=== PATIENT | male | born 1955 | race Caucasian/White ===

== ENCOUNTER 2016-06-26 14:31 | Emergency (ER) | payer OTHER ==
[~2016-06-26] VITALS: Wt 72.0 kg
--- NOTE | 2016-06-26 16:34 | RADRPT ---
PROCEDURE: Nonvascular ultrasound CLINICAL INDICATION: L NECK MASS TECHNIQUE: Real time raman scale ultrasound imaging with Doppler evaluation of left neck mass. COMPARISON: None. FINDINGS: Heterogeneous subcutaneous mass underline the region of palpable abnormality in the left neck measur ing 3.9 x 2.8 x 2.6 are in size. No internal vascularity. This may represent hematoma, primary mal ignancy, or lymphadenopathy. CT correlation with contrast is recommended IMPRESSION: Heterogeneous 3.9 cm subcutaneous mass in the left neck. Hematoma, primary malignancy, or lymphaden opathy are differential diagnostic considerations. Contrast enhanced CT neck is recommended. RPTAT:AAJJ Kassy Rai Physician Date Time Electronically viewed and signed by Physician Curtis on 06/26/2016 16:33 FRANCISCO J/
[2016-06-26 17:37] LABS: BASOPHILS % 0.6 % (0.0-2.0); EOSINOPHILS # 0.1 10^3/ul (0.0-0.5); EOSINOPHILS % 2.2 % (0.0-7.0); HEMATOCRIT 42.9 % (42.0-52.0); HEMOGLOBIN 14.8 g/dl (14.0-18.0); LYMPHOCYTES % 32.9 % (15.0-51.0); MEAN CORPUSCULAR HEMOGLOBIN 31.4 pg (29.0-33.0); MEAN CORPUSCULAR HGB CONC 34.4 g/dl (32.0-37.0); MEAN CORPUSCULAR VOLUME 91.4 fl (82.0-101.0); MEAN PLATELET VOLUME 9.5 fl (7.4-10.4); MONOCYTE # 0.6 10^3/ul (0.3-0.9); MONOCYTES % 9.5 % (0.0-11.0); NEUTROPHIL # 3.3 10^3/ul (1.6-7.5); NEUTROPHILS % 54.8 % (39.0-77.0); PLATELET COUNT 233 10^3/UL (140-440); RED BLOOD COUNT 4.69 10^6/ul (4.70-6.10); RED CELL DISTRIBUTION WIDTH 13.9 % (11.5-14.5)
[2016-06-26 17:39] LABS: CONDITION 1
[2016-06-26 17:50] LABS: ALBUMIN 4.6 g/dl (3.3-4.9)
[2016-06-26 17:51] LABS: POTASSIUM 4.5 mmol/L (3.5-5.1)
[2016-06-26 17:53] LABS: ALBUMIN/GLOBULIN RATIO 1.24; BILIRUBIN,INDIRECT 0.2 mg/dl (0-1.1); BILIRUBIN,TOTAL 0.2 mg/dl (0.2-1.3); CREATININE 0.76 mg/dl (0.61-1.24); TOTAL PROTEIN 8.3 g/dl (6.1-8.1)
[2016-06-26 17:54] LABS: CALCIUM 9.6 mg/dl (8.4-10.2)
[2016-06-26] MEDS ORDERED: IODIXANOL LOCM 100 ML BTL ONE (18:16)
[2016-06-26] MEDS ORDERED: SOD CHLORIDE 0.9% 100 ML ONE (18:16)
--- NOTE | 2016-06-26 18:51 | RADRPT ---
PROCEDURE: CT scan of the neck with contrast. CLINICAL INDICATION: Neck mass TECHNIQUE: CT scan of the neck was performed on the [employer] volumetric 64-slice scanner . Contiguous ax ial images were obtained throughout the neck with coronal and sagittal reformatted images. 100 cc o f Omnipaque 300 was administered. The exam CTDI = 10.12 and the DLP equals 295.44 mGy-cm. One or more of the following dose reduction techniques were used: Automated exposure control. Adjustment of the mA and/or kV according to patient size. Use of iterative reconstruction technique. COMPARISON: None available FINDINGS: There is approximately 3.2 x 3.5 x 4.1 cm (transverse x AP x craniocaudal) heterogeneous mass in the superficial lobe of the left parotid gland infiltrating into the adjacent sternocleidomastoid muscl e posteriorly. The oropharynx, hypopharynx, larynx, and trachea are unremarkable. No airway comprom ise is seen. The mucosal space of the airway is clear. The tonsillar pillars are normal. The deep spaces of the suprahyoid neck are symmetric and normal. No mass is identified. The right parotid submandibular glands, and thyroid gland are all normal. Imaging obtained through the lung apices re vealed no acute abnormality. Normal size lymph nodes are seen within the typical gwendolyn bearing stat ions of the neck bilaterally. No adenopathy is detected. The patient is status post ACDF at C5-C7 . The surrounding soft tissues and muscles are unremarkable as well. IMPRESSION: 1. 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 No CT evidence of perineural spread. Recommend ENT consult. 2. No lymphadenopathy in the neck by size criteria. RPTAT: HHO .Maegan Ha MD, MD Date Time Electronically viewed and signed by .Maegan Ha MD, on 06/26/2016 18:50 .O/
--- NOTE | 2016-06-26 19:44 | ERD ---
ER Documentation Chief Complaint Date/Time DATE: 06/26/16 TIME: 19:42 Chief Complaint left side facial swelling for 15 days, HPI This 60-year-old male complains of swelling on the left neck area over the last 2 weeks. He denies a bump evaluation. He has no fevers, vomiting, shortness of breath or chest pain. He has no difficulty swelling. ROS All systems reviewed and are negative except as per history of present illness. Allergies Allergies: Coded Allergies: No Known Allergy (Unverified , 06/26/16) PMhx/Soc History of Surgery: Yes (RIGHT HAND-WORKERS COMP) Anesthesia Reaction: No Hx Neurological Disorder: No Hx Respiratory Disorders: No Hx Cardiac Disorders: No Hx Psychiatric Problems: No Hx Miscellaneous Medical Probl: Yes (DM) Hx Alcohol Use: No Hx Substance Use: No Hx Tobacco Use: No Smoking Status: Never smoker Physical Exam Vitals Vital Signs Date Time Temp Pulse Resp B/P Pulse Ox O2 Delivery O2 Flow Rate FiO2 06/26/16 14:35 98.8 90 20 131/71 99 Physical Exam Const: [] Head: Atraumatic Eyes: Normal Conjunctiva ENT: Normal External Ears, Nose and Mouth. Neck: Full range of motion..~ No meningismus. Resp: Clear to auscultation bilaterally Cardio: Regular rate and rhythm, no murmurs Abd: Soft, non tender, non distended. Normal bowel sounds Skin: No petechiae or rashes Back: No midline or flank tenderness Ext: No cyanosis, or edema Neur: Awake and alert Psych: Normal Mood and Affect Result Diagram: 06/26/16 1700 06/26/16 1700 Results 24 hrs Laboratory Tests Test 06/26/16 17:00 Alanine Aminotransferase (ALT/SGPT) 28IU/L Albumin 4.6g/dl Albumin/Globulin Ratio 1.24 Alkaline Phosphatase 86IU/L Anion Gap 18 Aspartate Amino Transf (AST/SGOT) 19IU/L Basophils # 0.010^3/ul Basophils % 0.6% Blood Urea Nitrogen 14mg/dl Calcium Level 9.6mg/dl Carbon Dioxide Level 28mmol/L Chloride Level 102mmol/L Creatinine 0.76mg/dl Direct Bilirubin 0.00mg/dl Eosinophils # 0.110^3/ul Eosinophils % 2.2% Globulin 3.70g/dl Glucose Level 248mg/dl Hematocrit 42.9% Hemoglobin 14.8g/dl Indirect Bilirubin 0.2mg/dl Lymphocytes # 2.010^3/ul Lymphocytes % 32.9% Mean Corpuscular Hemoglobin 31.4pg Mean Corpuscular Hemoglobin Concent 34.4g/dl Mean Corpuscular Volume 91.4fl Mean Platelet Volume 9.5fl Monocytes # 0.610^3/ul Monocytes % 9.5% Neutrophils # 3.310^3/ul Neutrophils % 54.8% Nucleated Red Blood Cells # 0.010^3/ul Nucleated Red Blood Cells % 0.0/100WBC Platelet Count 18494^3/UL Potassium Level 4.5mmol/L Red Blood Count 4.6910^6/ul Red Cell Distribution Width 13.9% Sodium Level 143mmol/L Total Bilirubin 0.2mg/dl Total Protein 8.3g/dl White Blood Count 6.010^3/ul Current Medications Medications (Trade) Dose Ordered Sig/Osmel Route PRN Reason Start Time Stop Time Status Last Admin Dose Admin IV Flush 10 ml 10 ml STK-MED ONCE .ROUTE 06/26/16 18:16 06/26/16 18:17 DC 06/26/16 18:26 Sodium Chloride (NS) 100 ml @ ud STK-MED ONCE .ROUTE 06/26/16 18:16 06/26/16 18:17 DC 06/26/16 18:26 Iodixanol (Visipaque Locm) 100 ml STK-MED ONCE .ROUTE 06/26/16 18:16 06/26/16 18:17 DC 06/26/16 18:26 Procedures/MDM CBC is normal CMP shows glucose 248. Neck ultrasound shows a lesion on the differential hematoma, mass, lymphadenitis. 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 Patient will be given copies of results and instructed to follow-up with primary doctor this week. Patient subsequently provided paperwork showing that he restart his primary doctor and there is a ENT evaluation or referral pending. Patient is advised to fevers appointment follow up with primary care doctor for the status of ENT referral. He should return otherwise for [place] breathing, new or worsening symptoms. Departure Diagnosis: Primary Impression: Parotid mass Additional Impression: Hyperglycemia Condition: Stable Patient Instructions: Salivary Gland Swelling, Unk Cause, Tumor, Uncertain Cause Referrals: PEDRO WIN MD, STEPHEN H MD Additional Instructions: CT DICE ES POSIBLEMENTE TUMOR . REGRESA CON DOSS DOCTOR PRIMARIO PARA AUTORIZADO PARA SPECIALISTA DE [place]. TAE POPE KEVIN N. MD Jun 26, 2016 19:44
== END 2016-06-26 19:49 | disposition home or self-care (01) ==
LOC: FTE 14:31
DX: K11.8 Other diseases of salivary glands (principal); E11.65 Type 2 diabetes mellitus with hyperglycemia
CPT/HCPCS: 36415; 70491; 76536; 80053; 85025; 99285; Q9967